=== PATIENT | male | born 1955 | race American Indian/Alaskan Native ===

== ENCOUNTER 2022-02-05 08:41 | Emergency (ER) | payer MEDICARE ==
[2022-02-05 09:21] VITALS: BP 132/69
[2022-02-05 10:51] LABS: Basophils # (Auto) 0.1 K/mm3 (0.0-0.1); Basophils % (Auto) 0.7 % (0.0-1.8); Eosinophils % (Auto) 0.1 % (0.0-4.3); Hematocrit 39.8 % (35.5-45.6); Hemoglobin 13.1 gm/dl (11.8-15.2); Lymphocytes # (Auto) 0.4 K/mm3 (1.2-5.4); Lymphocytes % (Auto) 6.1 % (13.4-35.0); Mean Corpuscular HGB Conc 33 % (32-34); Mean Corpuscular Volume 101 fl (84-94); Monocytes # (Auto) 0.6 K/mm3 (0.0-0.8); Monocytes % (Auto) 7.6 % (0.0-7.3); Platelet Count 232 K/mm3 (140-440); Red Blood Count 3.96 M/mm3 (3.65-5.03); Red Cell Distribution Width 15.8 % (13.2-15.2)
[2022-02-05 11:14] LABS: Albumin 4.7 g/dL (3.9-5); Calcium 10.8 mg/dL (8.4-10.2)
--- NOTE | 2022-02-05 11:28 | Event Note ---
ED Screening Note ED Screening Note: HERE FOR MED CLEARANCE FOR [facility]/DETOX LABS DERANGED WITH NO BASELINE This initial assessment/diagnostic orders/clinical plan/treatment(s) is/are subject to change based on patients health status, clinical progression and re- assessment by fellow clinical providers in the ED. Further treatment and workup at subsequent clinical providers discretion. Patient/guardian urged not to elope from the ED as their condition may be serious if not clinically assessed and managed. Initial orders include: MD TO SEE AND CLEAR
[2022-02-05 12:34] LABS: Bilirubin,Urine NEG (Negative); Blood,Urine NEG (Negative); Color,Urine Yellow (Yellow); Mucus,Urine FEW /HPF
[2022-02-05 12:46] LABS: Amphetamine Screen,Urine Negative; Benzodiazepines Screen,Urine Negative; Cannabinoid Screen,Urine Negative; Methadone Screen,Urine Negative; Opiate Screen,Urine Negative
[2022-02-05] MEDS ORDERED: SODIUM CHLORIDE 0.9% 1000 ML 1,000 ML IV ONE ×2 (12:47→14:00)
[2022-02-05 12:59] LABS: Cocaine Screen,Urine Positive
--- NOTE | 2022-02-05 13:56 | XRay Report ---
ABDOMEN 1 VIEW INDICATION / CLINICAL INFORMATION: s/p g tube replacement. COMPARISON: None available. FINDINGS: TUBES / LINES: A gastrostomy tube projects over the stomach as expected. Contrast injected through th e tube opacifies the stomach and proximal small bowel. BOWEL GAS PATTERN: No significant abnormality. FREE AIR / EXTRALUMINAL GAS: None seen. ADDITIONAL FINDINGS: No significant additional findings. IMPRESSION: 1. Expected positioning of the gastrostomy tube. No acute findings. Signer Name: Josh Fagan MD Signed: 02/05/2022 1:52 PM Workstation Name: [id number]
--- NOTE | 2022-02-05 14:03 | Emergency Department Report ---
ED Psych HPI - General Chief Complaint: Medical Clearance Stated Complaint: MEDICAL CLEARENCE Time Seen by Provider: 02/05/22 12:21 Source: patient Mode of arrival: Ambulatory Limitations: No Limitations - History of Present Illness Initial Comments: 66-year-old male with history of oral cancer and cocaine addiction presents to the hospital requesting medical clearance for admission to [place] for cocaine addiction. Patient is asymptomatic and denies pain. 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 His PEG tube came out 1 hour prior to my evaluation. Patient is homeless - Related Data Allergies Allergy/AdvReac Type Severity Reaction Status Date / Time No Known Allergies Allergy Unverified 02/05/22 09:18 ED Review of Systems ROS: Stated complaint: MEDICAL CLEARENCE Other details as noted in HPI Comment: All other systems reviewed and negative ED Past Medical Hx - Past Medical History Previous Medical History?: Yes Hx of Cancer: Yes - Surgical History Past Surgical History?: Yes Additional Surgical History: epiglotics removal s/p cancer, peg ED Physical Exam - General Limitations: No Limitations - Other Other exam information: General: No acute distress Head: Atraumatic Eyes: normal appearance ENT: Moist mucous membranes Neck: Normal appearance, no midline tenderness Chest: Clear to auscultation bilaterally CV: Regular rate and rhythm Abdomen: Soft, normal bowel sounds, nontender, nondistended, no rebound or guarding Back: Normal inspection Extremity: Normal inspection, full range of motion Neuro: Alert O x 3, no facial asymmetry, speech clear, no gross motor sensory deficit Psych: Appropriate behavior Skin: No rash ED Course Vital Signs 02/05/22 09:17 Temperature 98.0 F Pulse Rate 64 Respiratory 20 Rate Blood Pressure 132/69 O2 Sat by Pulse 98 Oximetry - Feeding Tube Replacement Reason for Replacement: pt. removed/pulled out Initial Tube Inserted: greater than 4 weeks Type of Tube: gastrostomy Use of Tube: medications and feeding Insertion Site Prior to Procedure: clean Tube Used for Reinsertion: other (new tube) [place] Tube Size (F): 18 Balloon Size (mls): 8 Verification of Placement: gastrograffin injection Tube Secured by: tape/dressing Patient Tolerated Procedure: well ED Medical Decision Making - Lab Data Result diagrams: 02/05/22 10:18 02/05/22 10:18 Lab Results 02/05/22 02/05/22 02/05/22 Range/Units 09:32 09:32 10:18 WBC 7.3 (4.5-11.0) K/mm3 RBC 3.96 (3.65-5.03) M/mm3 Hgb 13.1 (11.8-15.2) gm/dl Hct 39.8 (35.5-45.6) % MCV 101 H (84-94) fl MCH 33 H (28-32) pg MCHC 33 (32-34) % RDW 15.8 H (13.2-15.2) % Plt Count 232 (140-440) K/mm3 Lymph % (Auto) 6.1 L (13.4-35.0) % [place] % (Auto) 7.6 H (0.0-7.3) % Eos % (Auto) 0.1 (0.0-4.3) % Baso % (Auto) 0.7 (0.0-1.8) % Lymph # (Auto) 0.4 L (1.2-5.4) K/mm3 [place] # (Auto) 0.6 (0.0-0.8) K/mm3 Eos # (Auto) 0.0 (0.0-0.4) K/mm3 Baso # (Auto) 0.1 (0.0-0.1) K/mm3 Seg Neutrophils % 85.5 H (40.0-70.0) % Seg Neutrophils # 6.2 (1.8-7.7) K/mm3 Sodium (137-145) mmol/L Potassium (3.6-5.0) mmol/L Chloride (98-107) mmol/L Carbon Dioxide (22-30) mmol/L Anion Gap mmol/L BUN (9-20) mg/dL Creatinine (0.8-1.3) mg/dL Estimated GFR ml/min BUN/Creatinine Ratio % Glucose (75-100) mg/dL Calcium (8.4-10.2) mg/dL Total Bilirubin (0.1-1.2) mg/dL AST (5-40) units/L ALT (7-56) units/L Alkaline Phosphatase (35-129) units/L Total Creatine Kinase (55-170) units/L Troponin T (0.00-0.029) ng/mL Total Protein (6.3-8.2) g/dL Albumin (3.9-5) g/dL Albumin/Globulin Ratio % Urine Color Yellow (Yellow) Urine Turbidity Clear (Clear) Urine pH 5.0 (5.0-7.0) Ur Specific Dyer 1.021 (1.003-1.030) Urine Protein 30 mg/dl (Negative) mg/dL Urine Glucose (UA) Neg (Negative) mg/dL Urine Ketones Neg (Negative) mg/dL Urine Blood Neg (Negative) Urine Nitrite Neg (Negative) Urine Bilirubin Neg (Negative) Urine Urobilinogen 2.0 (<2.0) mg/dL Ur Leukocyte Esterase Neg (Negative) Urine WBC (Auto) 3.0 (0.0-6.0) /HPF Urine RBC (Auto) 3.0 (0.0-6.0) /HPF U Epithel Cells (Auto) < 1.0 (0-13.0) /HPF Urine Mucus Few /HPF Salicylates (2.8-20.0) mg/dL Urine Opiates Screen Negative Urine Methadone Screen Negative Acetaminophen (10.0-30.0) ug/mL Ur Barbiturates Screen Negative Ur Phencyclidine Scrn Negative Ur Amphetamines Screen Negative U Benzodiazepines Scrn Negative Urine Cocaine Screen Positive U Marijuana (THC) Screen Negative Drugs of Abuse Note Disclamer Plasma/Serum Alcohol (0-0.07) % 02/05/22 02/05/22 02/05/22 Range/Units 10:18 10:18 10:18 WBC (4.5-11.0) K/mm3 RBC (3.65-5.03) M/mm3 Hgb (11.8-15.2) gm/dl Hct (35.5-45.6) % MCV (84-94) fl MCH (28-32) pg MCHC (32-34) % RDW (13.2-15.2) % Plt Count (140-440) K/mm3 Lymph % (Auto) (13.4-35.0) % [place] % (Auto) (0.0-7.3) % Eos % (Auto) (0.0-4.3) % Baso % (Auto) (0.0-1.8) % Lymph # (Auto) (1.2-5.4) K/mm3 [place] # (Auto) (0.0-0.8) K/mm3 Eos # (Auto) (0.0-0.4) K/mm3 Baso # (Auto) (0.0-0.1) K/mm3 Seg Neutrophils % (40.0-70.0) % Seg Neutrophils # (1.8-7.7) K/mm3 Sodium 142 (137-145) mmol/L Potassium 5.1 H (3.6-5.0) mmol/L Chloride 102.4 (98-107) mmol/L Carbon Dioxide 27 (22-30) mmol/L Anion Gap 18 mmol/L BUN 43 H (9-20) mg/dL Creatinine 1.7 H (0.8-1.3) mg/dL Estimated GFR 49 ml/min BUN/Creatinine Ratio 25 % Glucose 91 (75-100) mg/dL Calcium 10.8 H (8.4-10.2) mg/dL Total Bilirubin 0.50 (0.1-1.2) mg/dL AST 31 (5-40) units/L ALT 35 (7-56) units/L Alkaline Phosphatase 91 (35-129) units/L Total Creatine Kinase (55-170) units/L Troponin T (0.00-0.029) ng/mL Total Protein 8.4 H (6.3-8.2) g/dL Albumin 4.7 (3.9-5) g/dL Albumin/Globulin Ratio 1.3 % Urine Color (Yellow) Urine Turbidity (Clear) Urine pH (5.0-7.0) Ur Specific Dyer (1.003-1.030) Urine Protein (Negative) mg/dL Urine Glucose (UA) (Negative) mg/dL Urine Ketones (Negative) mg/dL Urine Blood (Negative) Urine Nitrite (Negative) Urine Bilirubin (Negative) Urine Urobilinogen (<2.0) mg/dL Ur Leukocyte Esterase (Negative) Urine WBC (Auto) (0.0-6.0) /HPF Urine RBC (Auto) (0.0-6.0) /HPF U Epithel Cells (Auto) (0-13.0) /HPF Urine Mucus /HPF Salicylates < 0.3 L (2.8-20.0) mg/dL Urine Opiates Screen Urine Methadone Screen Acetaminophen 5.0 L (10.0-30.0) ug/mL Ur Barbiturates Screen Ur Phencyclidine Scrn Ur Amphetamines Screen U Benzodiazepines Scrn Urine Cocaine Screen U Marijuana (THC) Screen Drugs of Abuse Note Plasma/Serum Alcohol (0-0.07) % 02/05/22 02/05/22 02/05/22 Range/Units 10:18 10:18 13:01 WBC (4.5-11.0) K/mm3 RBC (3.65-5.03) M/mm3 Hgb (11.8-15.2) gm/dl Hct (35.5-45.6) % MCV (84-94) fl MCH (28-32) pg MCHC (32-34) % RDW (13.2-15.2) % Plt Count (140-440) K/mm3 Lymph % (Auto) (13.4-35.0) % [place] % (Auto) (0.0-7.3) % Eos % (Auto) (0.0-4.3) % Baso % (Auto) (0.0-1.8) % Lymph # (Auto) (1.2-5.4) K/mm3 [place] # (Auto) (0.0-0.8) K/mm3 Eos # (Auto) (0.0-0.4) K/mm3 Baso # (Auto) (0.0-0.1) K/mm3 Seg Neutrophils % (40.0-70.0) % Seg Neutrophils # (1.8-7.7) K/mm3 Sodium (137-145) mmol/L Potassium (3.6-5.0) mmol/L Chloride (98-107) mmol/L Carbon Dioxide (22-30) mmol/L Anion Gap mmol/L BUN (9-20) mg/dL Creatinine (0.8-1.3) mg/dL Estimated GFR ml/min BUN/Creatinine Ratio % Glucose (75-100) mg/dL Calcium (8.4-10.2) mg/dL Total Bilirubin (0.1-1.2) mg/dL AST (5-40) units/L ALT (7-56) units/L Alkaline Phosphatase (35-129) units/L Total Creatine Kinase 123 (55-170) units/L Troponin T < 0.010 (0.00-0.029) ng/mL Total Protein (6.3-8.2) g/dL Albumin (3.9-5) g/dL Albumin/Globulin Ratio % Urine Color (Yellow) Urine Turbidity (Clear) Urine pH (5.0-7.0) Ur Specific Dyer (1.003-1.030) Urine Protein (Negative) mg/dL Urine Glucose (UA) (Negative) mg/dL Urine Ketones (Negative) mg/dL Urine Blood (Negative) Urine Nitrite (Negative) Urine Bilirubin (Negative) Urine Urobilinogen (<2.0) mg/dL Ur Leukocyte Esterase (Negative) Urine WBC (Auto) (0.0-6.0) /HPF Urine RBC (Auto) (0.0-6.0) /HPF U Epithel Cells (Auto) (0-13.0) /HPF Urine Mucus /HPF Salicylates (2.8-20.0) mg/dL Urine Opiates Screen Urine Methadone Screen Acetaminophen (10.0-30.0) ug/mL Ur Barbiturates Screen Ur Phencyclidine Scrn Ur Amphetamines Screen U Benzodiazepines Scrn Urine Cocaine Screen U Marijuana (THC) Screen Drugs of Abuse Note Plasma/Serum Alcohol < 0.01 (0-0.07) % - EKG Data -: EKG Interpreted by Ks EKG shows normal: sinus rhythm, ST-T waves (no stemi) Rate: normal - Radiology Data Radiology results: report reviewed ABDOMEN 1 VIEW INDICATION / CLINICAL INFORMATION: s/p g tube replacement. COMPARISON: None available. FINDINGS: TUBES / LINES: A gastrostomy tube projects over the stomach as expected. Contrast injected through the tube opacifies the stomach and proximal small bowel. BOWEL GAS PATTERN: No significant abnormality. FREE AIR / EXTRALUMINAL GAS: None seen. ADDITIONAL FINDINGS: No significant additional findings. IMPRESSION: 1. Expected positioning of the gastrostomy tube. No acute findings. - Medical Decision Making Patient presents to the hospital requesting help with cocaine addiction. Severe patient has moderate renal insufficiency with elevated BUN to creatinine ratio suggestive of dehydration. Patient has very minimal elevated potassium. Patient is PEG tube dependent secondary to cancer and does not take any thing by mouth. Patient received 2 L of normal saline in the ED. UDS positive for cocaine without signs of rhabdomyolysis. G-tube was replaced in the ED with position confirmed via x-ray G-tube study. Case discussed with Shamika with mental health called [facility] and pt can be sent back after medical clearance. He is not on a 1013 Critical Care Time: No Critical care attestation.: If time is entered above; I have spent that time in minutes in the direct care of this critically ill patient, excluding procedure time. ED Disposition Clinical Impression: Cocaine abuse, Dehydration, Mild renal insufficiency Disposition: [address] [place] [address] Is pt being admited?: No Does the pt Need Aspirin: No Condition: Stable Instructions: Acute Kidney Injury, Adult, Stimulant Use Disorder-Cocaine, Dehydration, Adult, [id number] Additional Instructions: You are discharged and medically cleared. Go directly to [facility] for further treatment. Your labs today showed mild dehydration and renal insufficiency. You were treated with 2 L of normal saline. Follow-up with a primary care doctor and cleaner assistant as outpatient Referrals: CYNTHIA TONG MD [Primary Care Provider] - 3-5 Days [facility] [Provider Group] - 3-5 Days (Primary care doctor) RODRICK FRAZIER MD [Staff Physician] - 3-5 Days (Kidney doctor) Time of Disposition: 14:32
--- NOTE | 2022-02-06 11:32 | Electrocardiograph Report ---
[facility] Test Date: 2022-02-05 Test Time: 11:45:29 Pat Name: GEOFFREY SUAREZ Department: Room: Gender: M [employer] Professor: JYOTHI : [id number] Requested By: LAURA CHOWDHURY Order Number: [id number] Reading MD: Rebecca Gomez Measurements Intervals [place] Rate: 58 P: 73 NE: 143 QRS: -32 QRSD: 109 T: 65 QT: 494 QTc: 486 Interpretive Statements Sinus rhythm Left ventricular hypertrophy ST elevation, consider anterolateral injury No previous ECG available for comparison Electronically Signed On 02-06-2022 10:43:09 EDT by Rebecca Gomez
== END 2022-02-05 19:13 ==
LOC: ED 08:41
DX: K94.23 Gastrostomy malfunction (principal); F14.10 Cocaine abuse, uncomplicated; Z20.822 Contact with and (suspected) exposure to COVID-19; E86.0 Dehydration; N28.9 Disorder of kidney and ureter, unspecified; Z98.890 Other specified postprocedural states; Z79.899 Other long term (current) drug therapy
CPT/HCPCS: 36415; 43762; 74018; 80048; 80053; 80307; 81001; 82550; 84484; 85025; 93005; 96360; 96361; 99283; 99284; J7030; Q9967; U0003; 80320; Q0162; G0480

== ENCOUNTER 2022-02-05 21:01 | Emergency (ER) | payer MEDICARE ==
[2022-02-05 23:34] LABS: Calcium 10.2 mg/dL (8.4-10.2)
[2022-02-06 00:03] LABS: Eosinophils % (Auto) 0.5 % (0.0-4.3); Hematocrit 37.9 % (35.5-45.6); Hemoglobin 12.5 gm/dl (11.8-15.2); Lymphocytes % (Auto) 15.5 % (13.4-35.0); Mean Corpuscular HGB Conc 33 % (32-34); Mean Corpuscular Volume 101 fl (84-94); Monocytes # (Auto) 1.1 K/mm3 (0.0-0.8); Platelet Count 149 K/mm3 (140-440); Red Blood Count 3.75 M/mm3 (3.65-5.03); Red Cell Distribution Width 15.7 % (13.2-15.2)
[2022-02-06] MEDS ORDERED: SODIUM CHLORIDE 0.9% 1000 ML 1,000 ML IV ONE ×3 (06:58→07:11)
[2022-02-06] MEDS ORDERED: SODIUM BICARBONATE 325 MG TAB FEEDTUBE PRN (06:58)
[2022-02-06] MEDS ORDERED: LIPASE 10,500/PROTEASE 25,000/AMYLASE 43,750 (UNITS) DR CAP FEEDTUBE PRN (06:58)
[2022-02-06] MEDS ORDERED: SIMPLE SYRUP 15 ML FEEDTUBE PRN ×2 (06:58)
--- NOTE | 2022-02-06 07:03 | Emergency Department Report ---
ED Psych HPI - General Chief Complaint: Psych Stated Complaint: MENTAL HEALTH CONCERNS Time Seen by Provider: 02/06/22 06:46 Source: patient Mode of arrival: Ambulatory Limitations: No Limitations - History of Present Illness Initial Comments: 66-year-old male presents to the hospital requesting inpatient psychiatric admission. Patient is tube feed dependent secondary to oral cancer and removal of his epiglottis. He initially expressed that he wanted help with cocaine addiction and was sent here by [facility] for medical clearance. He was seen he re yesterday and I treated him with 2 L of normal saline secondary to dehydration and I replaced his gastric tube which had come out 1 hour prior to my evaluation. Patient was subsequently discharged to go to [facility]. He was then sent back to the ER since they are unable to treat and manage him secondary to his G-tube. He was told that he will need mental health evaluation for possible transfer to [place]. Patient does not endorse suicidal ideation, homicidal ideation, or acute psychosis. It appears that he has been homeless for last 3 days and was living with his significant other prior to that. He has not had access to his gastric tube feedings for the last 3 days and is reporting feeling hungry. - Related Data Allergies Allergy/AdvReac Type Severity Reaction Status Date / Time No Known Allergies Allergy Verified 02/06/22 07:19 ED Review of Systems ROS: Stated complaint: MENTAL HEALTH CONCERNS Other details as noted in HPI Comment: All other systems reviewed and negative ED Past Medical Hx - Surgical History Additional Surgical History: epiglotics removal s/p cancer, peg ED Physical Exam - General Limitations: No Limitations - Other Other exam information: General: No acute distress Head: Atraumatic Eyes: normal appearance ENT: Moist mucous membranes Neck: Normal appearance, no midline tenderness Chest: Clear to auscultation bilaterally CV: Regular rate and rhythm Abdomen: Soft, normal bowel sounds, nontender, nondistended, no rebound or guarding, G-tube in place Back: Normal inspection Extremity: Normal inspection, full range of motion Neuro: Alert O x 3, no facial asymmetry, speech clear, no gross motor sensory deficit Psych: Appropriate behavior Skin: No rash ED Course Vital Signs 02/05/22 21:20 Temperature 98.4 F Pulse Rate 77 Respiratory 18 Rate Blood Pressure 141/71 [Right] O2 Sat by Pulse 99 Oximetry - Reevaluation(s) Reevaluation #1: 02/06/22 07:10 Patient does not meet criteria for 1013. Mental health evaluation consulted for evaluation and to see if patient meets criteria for inpatient admission for cocaine detox Patient requires dietary consult for tube feeding Patient requires case management consult due to tube feed dependence and homeless status Reevaluation #2: 02/06/22 07:23 Secondary reports that his has been called in the ED throughout the night. Received call from patient's at this time that she is coming from [place] to pick him up from the hospital. He has declined IV fluids. All the consults have been canceled and patient will be discharged with his to pick him up. Patient states he has tube feedings at home. ED Medical Decision Making - Lab Data Result diagrams: 02/05/22 22:31 02/05/22 22:31 Lab Results 02/05/22 02/05/22 02/05/22 Range/Units 22:31 22:31 22:31 WBC (4.5-11.0) K/mm3 RBC (3.65-5.03) M/mm3 Hgb (11.8-15.2) gm/dl Hct (35.5-45.6) % MCV (84-94) fl MCH (28-32) pg MCHC (32-34) % RDW (13.2-15.2) % Plt Count (140-440) K/mm3 Lymph % (Auto) (13.4-35.0) % Harrison % (Auto) Eos % (Auto) (0.0-4.3) % Baso % (Auto) Lymph # (Auto) (1.2-5.4) K/mm3 [place] # (Auto) (0.0-0.8) K/mm3 Eos # (Auto) (0.0-0.4) K/mm3 Baso # (Auto) (0.0-0.1) K/mm3 Seg Neutrophils % (40.0-70.0) % Seg Neutrophils # (1.8-7.7) K/mm3 Sodium 142 (137-145) mmol/L Potassium 4.7 (3.6-5.0) mmol/L Chloride 102.1 (98-107) mmol/L Carbon Dioxide 27 (22-30) mmol/L Anion Gap 18 mmol/L BUN 38 H (9-20) mg/dL Creatinine 1.5 H (0.8-1.3) mg/dL Estimated GFR 57 ml/min BUN/Creatinine Ratio 25 % Glucose 73 L (75-100) mg/dL Calcium 10.2 (8.4-10.2) mg/dL Salicylates < 0.3 L (2.8-20.0) mg/dL Acetaminophen 5.0 L (10.0-30.0) ug/mL Plasma/Serum Alcohol (0-0.07) % 02/05/22 02/05/22 Range/Units 22:31 22:31 WBC 6.8 (4.5-11.0) K/mm3 RBC 3.75 (3.65-5.03) M/mm3 Hgb 12.5 (11.8-15.2) gm/dl Hct 37.9 (35.5-45.6) % MCV 101 H (84-94) fl MCH 33 H (28-32) pg MCHC 33 (32-34) % RDW 15.7 H (13.2-15.2) % Plt Count 149 (140-440) K/mm3 Lymph % (Auto) 15.5 (13.4-35.0) % Harrison % (Auto) Qc Chemist Eos % (Auto) 0.5 (0.0-4.3) % Baso % (Auto) Qc Chemist Lymph # (Auto) 1.0 L (1.2-5.4) K/mm3 [place] # (Auto) 1.1 H (0.0-0.8) K/mm3 Eos # (Auto) 0.0 (0.0-0.4) K/mm3 Baso # (Auto) 0.0 (0.0-0.1) K/mm3 Seg Neutrophils % 67.8 (40.0-70.0) % Seg Neutrophils # 4.6 (1.8-7.7) K/mm3 Sodium (137-145) mmol/L Potassium (3.6-5.0) mmol/L Chloride (98-107) mmol/L Carbon Dioxide (22-30) mmol/L Anion Gap mmol/L BUN (9-20) mg/dL Creatinine (0.8-1.3) mg/dL Estimated GFR ml/min BUN/Creatinine Ratio % Glucose (75-100) mg/dL Calcium (8.4-10.2) mg/dL Salicylates (2.8-20.0) mg/dL Acetaminophen (10.0-30.0) ug/mL Plasma/Serum Alcohol < 0.01 (0-0.07) % - Medical Decision Making Patient is here requesting cocaine detox but it is likely because he has been homeless for the last 3 days since being kicked out of his 's home in [place]. He has not had any tube feedings in the last 3 days. Yesterday he was seen after G-tube came out and had his feeding tube replaced. Labs reveal dehydration and patient was treated with several liters of IV fluids. Dehydration is improved compared to yesterday however, additional fluids were ordered. Patient declined IV fluid hydration because his is going to come pick him up and take him home and he plans to restart his tube feeds. He does not meet criteria for 1013 since he does not endorse suicidal ideation, homicidal ideation, or psychosis. Critical Care Time: No Critical care attestation.: If time is entered above; I have spent that time in minutes in the direct care of this critically ill patient, excluding procedure time. ED Disposition Clinical Impression: Cocaine abuse, Dehydration, Mild renal insufficiency, Uses feeding tube Disposition: 01 HOME / SELF CARE / HOMELESS Is pt being admited?: No Does the pt Need Aspirin: No Condition: Stable Instructions: Stimulant Use Disorder-Cocaine, Finding Treatment for Addiction, PEG Tube Home Guide, [id number] Additional Instructions: Follow-up with your doctor or doctor/clinic provided. Return if symptoms worsen as indicated by your discharge instructions. SUBSTANCE ABUSE PROGRAMS: [facility]: Location: [place], [place] [facility] Address: [address] [place] [address] [facility]: Address: [address] [id number] [facility]: Address: [address] [place] [address] [facility]: Address: [address] [place] [address] Referrals: ELSA PARSON MD [Primary Care Provider] - 3-5 Days [facility] [Provider Group] - 3-5 Days Time of Disposition: 07:33
[2022-02-06] MEDS ORDERED: D5W/0.9% NACL 1,000 ML IV SCH (08:00)
[2022-02-06 08:04] VITALS: BP 116/80
== END 2022-02-06 08:04 | disposition home or self-care (01) ==
LOC: ED 21:01
DX: F14.10 Cocaine abuse, uncomplicated (principal); E86.0 Dehydration; N28.9 Disorder of kidney and ureter, unspecified; Z93.1 Gastrostomy status
CPT/HCPCS: 36415; 80048; 80320; 85025; 99283; G0480